=== PATIENT | male | born 1965 | race Caucasian/White ===

== ENCOUNTER 2021-11-30 13:40 | Emergency (ER) | payer OTHER ==
[2021-11-30 14:05] LABS: Absolute Lymphocytes (CBC) 2.3 K/uL (0.7-4.9); Hematocrit 40.1 % (39.6-49.0); Lymphocytes % 35.7 % (15.3-44.8); MPV 8.1 fL (7.6-11.3); RBC Red Blood Cell Count 4.78 M/uL (4.33-5.43)
[2021-11-30 14:07] LABS: Protime INR 1.09
[2021-11-30 14:24] LABS: ALT/SGPT 32 U/L (12-78); AST/SGOT 17 U/L (15-37); Albumin 3.5 g/dL (3.4-5.0); Alkaline Phosphatase 93 U/L (45-117); BUN Blood Urea Nitrogen 11 mg/dL (7-18); Bicarbonate 26 mmol/L (21-32); Bilirubin Total 0.3 mg/dL (0.2-1.0); Glomerular Filtration Rate 84 ml/min (=/>90); Glucose Level 110 mg/dL (74-106); Magnesium 2.1 mg/dL (1.8-2.4); NT PRO-BNP 161 pg/mL (<125); Protein, Total 7.3 g/dL (6.4-8.2); Sodium Level 140 mmol/L (136-145)
[2021-11-30 14:26] LABS: Bilirubin Direct < 0.1 mg/dL (0-0.2)
--- NOTE | 2021-11-30 14:54 | ER ---
Nurse's Notes [facility] Name: Alverto Armijo Age: 56 yrs Sex: Male : 1965 Arrival Date: 11/30/2021 Time: 13:48 Bed 13 Private MD: Diagnosis: Presentation: 11/30 13:49 Chief complaint: Patient states: Received some bad news at work and started having ww palpitations and became lightheaded. Had AAA repair 09/09/2021 at [facility]. Coronavirus screen: Client denies travel out of the [place] in the last 14 days. Ebola Screen: Patient denies travel to an Ebola-affected area in the 21 days before illness onset. Initial Sepsis Screen: Does the patient meet any 2 criteria? No. Patient's initial sepsis screen is negative. Does the patient have a suspected source of infection? No. Patient's initial sepsis screen is negative. Risk Assessment: Do you want to hurt yourself or someone else? Patient reports no desire to harm self or others. Onset of symptoms was November 30, 2021. 13:49 Method Of Arrival: EMS: [facility] ww 13:49 Acuity: GREGG 3 ww Triage Assessment: 13:50 General: Appears in no apparent distress. comfortable, Behavior is calm, cooperative. ww Pain: Denies pain. EENT: No signs and/or symptoms were reported regarding the EENT system. Neuro: [place] Agitation-Sedation Scale (RASS): 0 - Alert and Calm Level of Consciousness is awake, alert, obeys commands, Oriented to person, place, time, situation, Moves all extremities. Speech is normal. Cardiovascular: Capillary refill < 3 seconds Patient's skin is warm and dry. Rhythm is regular Chest pain is denied. Respiratory: Airway is patent Respiratory effort is even, unlabored, Respiratory pattern is regular, symmetrical. GI: No signs and/or symptoms were reported involving the gastrointestinal system. Abdomen is non-distended. Derm: No signs and/or symptoms reported regarding the dermatologic system. Skin is intact, is healthy with good turgor, Skin is pink, warm \T\ dry. Historical: - Allergies: 13:50 No Known Allergies; ww - Home Meds: 13:50 losartan 25 mg oral tab 1 tab once daily [Active]; aspirin 81 mg Oral chew 1 tab once ww daily [Active]; Iron CR Oral [Active]; - PMHx: 13:50 Hypertensive disorder; Aortic aneursym; ww - PSHx: 13:50 Aortic Aneursym Repair; ww - Immunization history:: Adult Immunizations up to date. - Social history:: Smoking status: Patient denies any tobacco usage or history of. Screenin:52 Abuse screen: Denies threats or abuse. Denies injuries from another. Nutritional ww screening: No deficits noted. Tuberculosis screening: No symptoms or risk factors identified. Fall Risk None identified. Assessment: 13:52 Reassessment: Patient appears in no apparent distress at this time. No changes from ww previously documented assessment. Patient and/or family updated on plan of care and expected duration. Pain level reassessed. Patient is alert, oriented x 3, equal unlabored respirations, skin warm/dry/pink. see triage assessment. Vital Signs: 13:49 BP 129 / 78; Pulse 93; Resp 18; Temp 98.3; Pulse Ox 99% on R/A; Weight 108.86 kg; ww Height 6 ft. 1 in. (185.42 cm); Pain 0/10; 13:49 Body Mass Index 31.66 (108.86 kg, 185.42 cm) ww ED Course: 13:48 Patient arrived in ED. ww 13:48 [facility] cp 13:49 Tan Valdez MD is Attending Physician. cp 13:50 Triage completed. ww 13:52 Arm band placed on. ww 13:52 Patient has correct armband on for positive identification. Call light in reach. Side ww rails up X2. Adult w/ patient. Client placed on continuous cardiac and pulse oximetry monitoring. NIBP monitoring applied. 13:52 EKG done. Inserted saline lock: 20 gauge in right antecubital area, using aseptic ww technique. Blood collected. 14:52 Myrna Barrios, DARLEEN is Primary Nurse. quintanilla 14:53 Inserted IV discontinued, intact, Pressure dressing applied. quintanilla Administered Medications: No medications were administered Outcome: 14:52 AMA AMA form signed quintanilla 14:52 Condition: good 14:53 Patient left the ED. quintanilla Signatures: Tan Streeter PA PA cp Sara Langley RN RN Myrna Barrios RN RN quintanilla
--- NOTE | 2021-11-30 14:54 | EDPHYS ---
Physician Documentation [facility] Name: Alverto Armijo Age: 56 yrs Sex: Male : 1965 Arrival Date: 11/30/2021 Time: 13:48 Bed 13 Private MD: ED Physician Tan Valdez Historical: - Allergies: 11/30 13:50 No Known Allergies; ww - Home Meds: 13:50 losartan 25 mg oral tab 1 tab once daily [Active]; aspirin 81 mg Oral chew 1 tab once ww daily [Active]; Iron CR Oral [Active]; - PMHx: 13:50 Hypertensive disorder; Aortic aneursym; ww - PSHx: 13:50 Aortic Aneursym Repair; ww - Immunization history:: Adult Immunizations up to date. - Social history:: Smoking status: Patient denies any tobacco usage or history of. Exam: 13:49 ECG was reviewed by the Attending Physician. Vital Signs: 13:49 BP 129 / 78; Pulse 93; Resp 18; Temp 98.3; Pulse Ox 99% on R/A; Weight 108.86 kg; ww Height 6 ft. 1 in. (185.42 cm); Pain 0/10; 13:49 Body Mass Index 31.66 (108.86 kg, 185.42 cm) ww MDM: 13:49 Patient medically screened. [facility] 11/30 13:50 Order name: Basic Metabolic Panel; Complete Time: 14:28 11/30 14:28 Interpretation: Normal except: CL 109; GLUC 110; GFR 84. 11/30 13:50 Order name: CBC with Diff; Complete Time: 14:28 11/30 14:28 Interpretation: Normal except: HGB 13.2. 11/30 13:50 Order name: LFT's; Complete Time: 14:28 11/30 13:50 Order name: Magnesium; Complete Time: 14:28 11/30 13:50 Order name: NT PRO-BNP; Complete Time: 14:28 11/30 13:50 Order name: PT-INR; Complete Time: 14:28 11/30 13:50 Order name: Troponin HS; Complete Time: 14:28 11/30 13:50 Order name: XRAY Chest (1 view) 11/30 13:50 Order name: EKG; Complete Time: 13:51 cp 11/30 13:50 Order name: Cardiac monitoring; Complete Time: 13:53 cp 11/30 13:50 Order name: EKG - Nurse/Tech; Complete Time: 13:53 cp 11/30 13:50 Order name: IV Saline Lock; Complete Time: :53 cp 11/30 13:50 Order name: Labs collected and sent; Complete Time: :53 11/30 14:30 Order name: CT Aorta for Dissection 11/30 13:50 Order name: O2 Per Protocol; Complete Time: :53 cp 11/30 13:50 Order name: O2 Sat Monitoring; Complete Time: :53 cp EC:49 Rate is 92 beats/min. Rhythm is regular. NV interval is normal. QRS interval is normal. cp QT interval is normal. T waves are Inverted in leads aVL, aVR. Interpreted by me. Reviewed by me. Administered Medications: No medications were administered Disposition Summary: 11/30/21 14:53 Left Against Medical Advice Location: Home quintan[place] Condition: Stable quintanilla Signatures: Dispatcher [employer] Tan Stroud MD MD cha Page, Corey, PA PA cp Wood, Whitney, RN DARLEEN Myrna Barrios RN RN quintanilla
[2021-11-30 14:59] VITALS: BP 129/78; TEMP 98.3; O2SAT 99
--- NOTE | 2021-12-01 07:20 | EKG ---
Test Date: 2021-11-30 Test Time: 13:41:43 Acid Patroller: PABLO MEASUREMENT RESULTS: Intervals: Rate: 92 NH: 154 QRSD: 86 QT: 368 QTc: 455 Hope: P: 41 NH: 154 QRS: 56 T: 78 INTERPRETIVE STATEMENTS: Normal sinus rhythm Normal ECG No previous ECG available for comparison Electronically Signed On 12-01-21 07:17:30 CDT by Jaspreet Vilchis
== END 2021-11-30 14:53 | disposition left against medical advice (07) ==
LOC: ER 13:40
DX: R00.2 Palpitations (principal); R42 Dizziness and giddiness; I10 Essential (primary) hypertension; Z79.82 Long term (current) use of aspirin
CPT/HCPCS: 36415; 80048; 80076; 83735; 83880; 84484; 85025; 85610; 93005